=== PATIENT | male | born 1945 | race Caucasian/White ===

== ENCOUNTER 2018-03-14 14:51 | Inpatient (IN) | payer MEDICARE, OTHER ==
[2018-03-14] MEDS ORDERED: hydrALAZINE 20 MG/ML VIAL SLOW IVP PRN (17:24)
[2018-03-14 18:07] VITALS: BMI 24.5
--- NOTE | 2018-03-14 18:41 | CT ---
CT BRAIN WITHOUT CONTRAST: INDICATIONS: History of ischemic stroke, status post tPA. COMPARISON: None. FINDINGS: There is an area of acute stroke involving the anterior left insular cortex and the anterior aspect o f the lateral left frontal lobe, on image 15 of series 2. This is in an MCA distribution. No additi onal infarct is grossly evident. The septum pellucidum and third ventricle are midline. There is mu cosal thickening within the ethmoid air cells. The mastoid air cells are clear. The skull is intact . IMPRESSION: Findings of acute stroke involving the anterior left insular cortex, in a left middle cerebral artery distribution. No additional acute infarct is grossly evident. No intracranial hemorrhage is noted. POS: [facility]
[2018-03-14] MEDS: Sodium Chloride 0.9% 1,000 ML IV SCH (19:44)
[2018-03-15 05:02] LABS: Cardiac Risk 3.5 (Less than 4.5)
--- NOTE | 2018-03-15 06:34 | HP ---
CHIEF COMPLAINT: Stroke. HISTORY OF PRESENT ILLNESS: This patient is a 73-year-old male who initially presented to [facility] in [place]. The patient has a history of hypertension, but otherwise very active and healthy person. He presented after having abrupt neurologic symptoms. The patient's reported that he simply stepped out on the front porch and then she heard him fall and he apparently could not get up and called out for her and she went out to find him with some right-sided weakness and some slurred speech and facial droop. The patient was taken to the emergency department there where he was diagnosed with a stroke. Head CT was performed which revealed a left middle cerebral artery distribution cerebrovascular accident. A CT angiogram revealed abrupt cutoff of the anterior left M3, M4 branch within the left sylvian fissure representing a vessel occlusion. There was 40% stenosis of the origin of the left internal carotid with atheromatous plaque and some paranasal sinus disease. The patient met criteria and subsequently had t-PA administered. He has apparently had some improvement of symptoms since that time according to the family. The paramedics who delivered the patient to the hospital in [place] were also the ones to transport him to our facility and said he was dramatically improved. Currently, the patient denies any particular problems. The patient is not talking a great deal; however. PAST MEDICAL HISTORY: Notable for hypertension. PAST SURGICAL HISTORY: None. REVIEW OF SYSTEMS: Not obtainable presently. SOCIAL HISTORY: The patient is a nonsmoker. He uses a can of smokeless tobacco per day. No significant alcohol use. He is . CODE STATUS: He is FULL CODE. His and children are surrogate decision makers. ALLERGIES: None. MEDICATIONS: Lisinopril 20 mg p.o. b.i.d., carvedilol 12.5 mg p.o. b.i.d., and Norvasc 5 mg every day. PHYSICAL EXAMINATION: VITAL SIGNS: Afebrile, pulse 64, BP 118/68, O2 sat 99% on room air. GENERAL APPEARANCE: Age appropriate male. He is in no distress. He is awake. He does make eye contact. He speaks very little. He has some confusion regarding following the commands at times. He has right facial droop. HEENT: Pupils are equal, round, and reactive. He has no OP lesions. NECK: Supple and symmetric. CARDIOVASCULAR: Regular rate and rhythm without murmurs. LUNGS: Clear to auscultation bilaterally. Good chest wall expansion and air exchange. ABDOMEN: Soft, nontender, nondistended. Positive bowel sounds, no masses, no organomegaly. 14 cm umbilical hernia that is not reducible, but soft and non- tender with no inflammation. Right inguinal hernia with no evidence of incarceration. EXTREMITIES: Warm and dry. NEUROLOGIC: The patient has some right-sided weakness that is 4/5. He appears to have some confusion when following commands. When asked to stick out his tongue he puts his finger in his mouth. No significant evidence of neglect. Cerebellar exams are difficult as patient is not able to adequately follow commands. Speaks one word answers occasionally. LABORATORY DATA: Performed at outside facility, glucose 126, BUN 6, creatinine 0.85, sodium 140, potassium 3.9, chloride 107, CO2 19, bilirubin 0.6, alkaline phosphatase 64, AST 20, ALT 10, total protein 7.9, albumin 4.1. Troponins negative. INR is 1.1, PT 14.4, white count 10.2, hemoglobin 16.2, platelets 345. ASSESSMENT AND PLAN: 1. Left middle cerebral artery cerebrovascular accident status post t-PA. The patient will be admitted to the CCU with close observation with frequent neuro checks for 24 hours and avoid any other invasive procedures or needle sticks during that time. The patient will subsequently need an echocardiogram, fasting lipid panel and initiation of antiplatelet therapy. We will allow for some hypertension, give p.r.n. for systolics greater than 185. We will repeat head CT following the t-PA infusion. The patient may need MRI at some point. We will consult the stroke team including speech therapy and keep the patient n.p.o. until he has an evaluation as he appears to have failed the bedside swallowing study. 2. Hypertension. We will resume his usual medications once he is able to tolerate p.o. and will also avoiding any medicines until that time. 3. Umbilical hernia. Stable 4. Right inquinal hernia. Stable 3. Disposition. I had a long discussion with the patient's family and explained the prognosis. We will do a little in the first 24 hours and monitor closely and then we will initiate significant therapy interventions. TANIA
--- NOTE | 2018-03-15 08:59 | CT ---
PRELIMINARY REPORT/[facility]/EMERGENTY AFTER-HOURS PROCEDURE CT Head Without Intravenous Contrast EXAM DATE/TIME: 03/15/2018 4:03 AM CLINICAL HISTORY: 73 years old, male; Screening exam; Patient HX: CVA; S/P tpa TECHNIQUE: Axial computed tomography images of the head/brain without intravenous contrast. COMPARISON: CT Brain W Con 03/14/2018 6:22 PM FINDINGS: Brain: Patient is post TPA administration. No acute intracranial hemorrhage. Redemonstrated is hypoat tenuation in a LEFT MCA distribution with involvement of the LEFT frontal lobe, anterior subinsular c ortex and small region of hypoattenuation within the LEFT posterior parietal lobe better defined from prior. Ventricles: Normal. No ventriculomegaly. Bones/joints: Normal. No acute fracture. Sinuses: Normal as visualized. No acute sinusitis. Mastoid air cells: Normal as visualized. No mastoid effusion. Soft tissues: Normal. IMPRESSION: 1. Patient is post TPA administration. No acute intracranial hemorrhage. 2. LEFT MCA territory infarcts more pronounced from prior as above. (Now Aspect 6- previous score pro bably 8) Thank you for allowing us to participate in the care of your patient. Dictated and Authenticated by: Jamarcus Velázquez MD 03/15/2018 4:23 AM Central Time ([place] & [place]) CT BRAIN WITHOUT CONTRAST: History: Status post TPA. Comparison: Prior day. FINDINGS: These findings and impression are concordant with the preliminary report. Code QA POS: [facility]
[2018-03-15] MEDS ORDERED: Prevnar 13-Val Conj/PF 0.5 ML SYRINGE IM ONE (09:00)
[2018-03-15] MEDS ORDERED: Aspirin 300 MG Suppository PR SCH (15:15)
[2018-03-15] MEDS: Sodium Chloride 0.9% 1,000 ML IV SCH (15:42)
--- NOTE | 2018-03-15 16:51 | PDOC.PN ---
- Subjective Encounter Start Date: 03/15/18 Encounter Start Time: 10:30 No complaints, but not really verbal. Nursing and therapy indicate that the does seem to understand some communication at times and follow commands, but other times does not. Seems to respond to visual cues when he does not respond to verbal cues. - Objective Resuscitation Status: Resuscitation Status FULL:Full Resuscitation Vital Signs & Weight: Vital Signs (12 hours) Temp Pulse Pulse BP BP Pulse Ox Pulse Ox 03/15/18 12:00 98.5 F 03/15/18 10:24 64 61 142/79 H 148/61 H 97 03/15/18 08:00 98 03/15/18 07:00 98.9 F Pulse Ox 03/15/18 12:00 03/15/18 10:24 97 03/15/18 08:00 03/15/18 07:00 Weight Admit Weight 161 lb 2.526 oz Weight 161 lb 2.526 oz Most Recent Monitor Data Heart Rate from ECG 61 NIBP 139/76 NIBP BP-Mean 97 Respiration from ECG 18 SpO2 97 I&O: 03/14/18 03/15/18 03/16/18 06:59 06:59 06:59 Intake Total 507 Output Total 3 2 Balance 504 -2 Phys Exam - Physical Examination Constitutional: NAD Respiratory: no wheezing, no rales, no rhonchi, clear to auscultation bilateral Cardiovascular: RRR, no significant murmur Gastrointestinal: soft, non-tender, no distention, positive bowel sounds Musculoskeletal: no edema Right facial droop. RUE weakness increased from last night. 4/5 RLE str. Non-verbal. Some receptive aphasia. Dx/Plan (1) CVA (cerebral vascular accident) Code(s): I63.9 - CEREBRAL INFARCTION, UNSPECIFIED Status: Acute Comment: Status post tPA. Now past 24 hours. Start ASA. Will start statin if he can get to the poing of swallowing pills. (2) Hypertension Code(s): I10 - ESSENTIAL (PRIMARY) HYPERTENSION Status: Acute Comment: Stable without meds. (3) Aphasia Code(s): R47.01 - APHASIA Status: Acute (4) Dysphagia Code(s): R13.10 - DYSPHAGIA, UNSPECIFIED Status: Acute Comment: Still NPO. Continue to assess. - Plan * Transfer to stroke floor. Continue therapy.
--- NOTE | 2018-03-15 21:22 | CON ---
DATE OF CONSULTATION: 03/15/2018 HISTORY: Mr. Morrow is a 73-year-old male who presented with symptoms of a stroke. He has undergone TPA administration. He is moving his right lower extremity more than his right upper extremity and h e is aphasic. He is in the ICU was consulted because of presence in the ICU. PAST MEDICAL HISTORY: Remarkable for hypertension. SOCIAL HISTORY: Non-smoker. He dips and nondrinker. FAMILY HISTORY: Negative for lung disease in early age. ALLERGIES: He reports no drug allergies. MEDICATIONS: Prior to admission, he was on lisinopril, Coreg, Norvasc. REVIEW OF SYSTEMS: Not obtainable. PHYSICAL EXAMINATION: GENERAL: He is in no distress. VITAL SIGNS: He is afebrile, heart rate in the 60s, blood pressure 106/80, respiratory rate is 20, o ximetry is 97%. HEENT: Pupils reactive. Facial droop. NECK: Supple. LUNGS: Clear. HEART: Regular rhythm. S1 and S2 are normal. No murmur or gallop. ABDOMEN: Soft and nontender. EXTREMITIES: Without clubbing, cyanosis or edema. LABORATORY DATA: White count 8.7, hemoglobin 15.1, platelets 328. Sodium 140, potassium 3.7, chlori de 107, bicarbonate 29, BUN 9, creatinine 0.8. IMPRESSION AND PLAN: Cerebrovascular status post TPA, clinically stable. He will stay in the Critic al Care Unit per TPA protocol. Once he completed the protocol, he can move to stroke unit. This is a 70-minute consult, 50% time spent in coordinating care. We will sign off once he transfers out of the Critical Care Unit.
--- NOTE | 2018-03-16 03:52 | CON ---
DATE OF CONSULTATION: 03/15/2018 CHIEF COMPLAINT: Acute stroke. HISTORY OF PRESENT ILLNESS: History was given by family plus medical chart. The patient is a 73-yea r-old man who was taken to [facility] in [place], [place]. The patient has a history of hypertens ion. He is quite active otherwise. He woke up and ate breakfast on 03/14/2018. 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 He was somewhat fidgety when he came back. At last time, he was fidgety, had the same symptoms 1-1/2 years ago. He hollered and his found him lying down on the deck out side. He could not get himself up. This incident occurred at 11:00 a.m. They got to [facility] between 12 to 12:30 p.m. and he received IV tPA. Daughter said he also was given a bolus of IV tPA. Prior to tPA, there were some improvement, but subsequent to tPA, they did not notice any change, b ut overnight he seems to have worsened according to his [id number]. The patient had a CT head w [facility] showed a left MCA territory infarct. CT angiogram showed cut off the anterior left M3, M4 branc h within the left sylvian fissure, representing a vessel occlusion and 40% stenosis of left ICA. Acc ording to his chart, this CT angio report was not available to me for review. The patient met the cr iteria for tPA and patient has been brought to our hospital and since then he has not been talking mu and he continues to have right upper extremity weakness. PAST MEDICAL HISTORY: The patient has history of hypertension. PAST SURGICAL HISTORY: He had appendectomy in the past. SOCIAL HISTORY: The patient is a nonsmoker. He does use snuff once daily and he is , lives a t home. 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 He drinks 2 drinks of al cohol per day. ALLERGIES: No known drug allergies. CURRENT MEDICATIONS: At home, he takes lisinopril 20 mg twice daily, carvedilol 12.5 mg twice a day, Norvasc 5 mg daily. FAMILY HISTORY: His brother was killed in his early 50s in a motor vehicle accident. His sister d in her 60s from an early stroke and his father and he does not know the cause of and mot her in her 70s and review of systems unobtainable. LABORATORY DATA AND X-RAY FINDINGS: Triglycerides 62, cholesterol 142, LDL 89, HDL 41 and his lab re ports that were done at [facility] were not available to me and CT scan of the head was p erformed on arrival here and that showed findings of acute stroke in the anterior left insular cortex and in the left middle cerebral artery distribution and repeat CT scan of the head performed today s howed no acute hemorrhage and the same findings were redemonstrated, but the small region of hypoatte nuation within the left posterior parietal lobe was better defined from prior CT and his echo is pend ing, MRI is pending. PHYSICAL EXAMINATION: VITAL SIGNS: Blood pressure 139/76, heart rate is 61, temperature 97.4. GENERAL APPEARANCE: Well-built, well-nourished gentleman who is comfortable in the bed and he is charlie rounded by his family members. CHEST: Clear vesicular breathing. CARDIOVASCULAR: S1, S2 heard, no murmurs. ABDOMEN: Soft, nontender and he does have an umbilical hernia. NEUROLOGIC: Higher intellectual functions difficult to assess his mental status due to severe expres sive aphasia. Cranial nerves: Normal extraocular movements. Pupils are equal and reactive to light and normal hearing because he is able to comprehend verbal speech. Tongue midline and he has right facial droop. Speech abnormal with expressive aphasia. MOTOR EXAMINATION: Bulk normal, tone normal, strength is 0/5 in the right upper extremity throughout and 3/5 in the right lower extremity, left side was normal 5/5. Muscle groups tested are iliopsoas, hamstrings, quadriceps, ankle dorsiflexion, plantar flexion, deltoid, biceps, triceps, wrist extensi on/flexion, finger extension and flexion bilaterally. CEREBELLAR: Difficult to perform due to his aphasia and sensory difficult to assess. Gait not tayla ble. IMPRESSION: The patient is a 73-year-old man with known history of hypertension. He had an acute st roke in the left middle cerebral artery distribution and has developed right face, arm, and leg weakn ess with expressive aphasia and his stroke is further established since the onset. This event could have been devastating if he did not receive IV tPA and he has 40% stenosis of the origin of left inte rnal carotid artery as well. Based on his chart, clinical diagnosis is most consistent with acute ce rebrovascular accident in the left middle cerebral artery distribution and he had tPA administered wi thin the timeframe. At this time, he is stable, but continues to have significant aphasia and severe right arm weakness and some improvement of the right leg weakness and does not exhibit any gaze alina ation. I do think tPA has helped him to prevent significant ischemic penumbra. RECOMMENDATIONS: 1. I discussed the diagnosis with the patient and his family members answered all their questions. 2. We will request an MRI scan of the brain to evaluate the extent of his CVA and whether if any oth er additional areas. 3. We obtained all the CT angiogram reports as well for our records, so subsequent evaluations and p lans can be made for better management of stroke risk in the future. Please complete stroke workup i ncluding echocardiogram. I will request his Neurology team, inpatient team will continue to follow.
[2018-03-16 04:45] LABS: #Eosinphils 0.2 thou/uL (0.0-0.7); #Lymphocytes 1.8 thou/uL (1.20-3.40); #Monocytes 0.6 thou/uL (0.11-0.59); #Neutrophils 6.4 thou/uL (1.40-6.50); %Basophils 0.5 % (0.0-1.0); %Eosinophils 2.7 % (0.0-10.0); %Lymphocytes 20.1 % (21.0-51.0); %Monocytes 6.8 % (0.0-10.0); Mean Corpuscular HGB CONC 31.8 g/dL (32.0-36.0); Mean Corpuscular Hemoglobin 29.4 pg (27.0-31.0); Mean Corpuscular Volume 92.4 fL (78.0-98.0); Mean Platelet Volume 7.8 fL (7.4-10.4); Platelet Count 299 thou/uL (130-400); RBC Distribution Width 12.4 % (11.5-14.5); Red Blood Cell (RBC) Count 5.09 mill/uL (4.70-6.10); White Blood Cell (WBC) Count 9.1 thou/uL (4.8-10.8)
[2018-03-16 05:10] LABS: Anion Gap 11 mmol/L (10-20); BUN (Urea Nitrogen) 10 mg/dL (8.4-25.7); Calc. Creatinine Clearance 95 mL/min (70-130); Calcium 8.9 mg/dL (7.8-10.44); Carbon Dioxide 24 mmol/L (23-31); Chloride 107 mmol/L (98-107); Estimated GFR-MDRD Greater than 90; Glucose 83 mg/dL (83-110); Potassium 3.5 mmol/L (3.5-5.1); Sodium 138 mmol/L (136-145)
[2018-03-16] MEDS: Aspirin 300 MG Suppository PR SCH (08:24)
[2018-03-16] MEDS: Sodium Chloride 0.9% 1,000 ML IV SCH (12:14)
--- NOTE | 2018-03-16 16:55 | PDOC.PN ---
- Subjective Encounter Start Date: 03/16/18 Encounter Start Time: 15:30 -: non-verbal - Objective Resuscitation Status: Resuscitation Status FULL:Full Resuscitation Vital Signs & Weight: Vital Signs (12 hours) Temp Pulse Pulse Pulse Resp BP BP 03/16/18 15:32 97.3 F L 64 16 03/16/18 11:50 97.9 F 62 16 03/16/18 10:10 72 59 L 147/82 H 157/91 H 03/16/18 09:30 64 161/89 H 03/16/18 08:19 03/16/18 07:52 97.5 F L 69 16 BP Pulse Ox 03/16/18 15:32 154/88 H 96 03/16/18 11:50 143/82 H 96 03/16/18 10:10 03/16/18 09:30 03/16/18 08:19 95 03/16/18 07:52 154/80 H 95 Weight Admit Weight 161 lb 2.526 oz Weight 161 lb 2.526 oz Most Recent Monitor Data Heart Rate from ECG 61 NIBP 139/76 NIBP BP-Mean 97 Respiration from ECG 18 SpO2 97 I&O: 03/15/18 03/16/18 03/17/18 06:59 06:59 06:59 Intake Total 507 174 Output Total 3 2 Balance 504 172 Result Diagrams: 03/16/18 04:19 03/16/18 04:19 Phys Exam - Physical Examination Constitutional: NAD Expressive aphasia Respiratory: no wheezing, no rales, no rhonchi, clear to auscultation bilateral Cardiovascular: RRR, no significant murmur, no rub Gastrointestinal: soft, non-tender, no distention, positive bowel sounds Musculoskeletal: no edema Persistent paralysis of RUE, right facial droop, modest RLE Weakness. Expressive aphasia, some degree of receptive aphasia Psychiatric: normal affect Dx/Plan (1) CVA (cerebral vascular accident) Code(s): I63.9 - CEREBRAL INFARCTION, UNSPECIFIED Status: Acute Comment: Status post tPA. Now past 24 hours. Start ASA. Will start statin if he can get to the poing of swallowing pills. (2) Hypertension Code(s): I10 - ESSENTIAL (PRIMARY) HYPERTENSION Status: Acute Comment: Stable without meds. (3) Aphasia Code(s): R47.01 - APHASIA Status: Acute (4) Dysphagia Code(s): R13.10 - DYSPHAGIA, UNSPECIFIED Status: Acute Comment: Still NPO. Failing swallowing evals. Talked with MORTUARY TECHNICIAN. I don't think MBS is going to change the need for PEG. Discussed with patient and family. They are agreeable to the PEG. Discussed with Dr. Rizo. - Plan * PEG. * IP Rehab consult pending.
--- NOTE | 2018-03-16 23:20 | CON ---
DATE OF CONSULTATION: 03/16/2018 REASON FOR CONSULTATION: In need of a gastrostomy feeding tube. HISTORY: Mr. Morrow is a 73-year-old male who sustained an acute cerebrovascular event involving the left-side MCA distribution resulting in severe right-sided weakness, aphasia and dysphagia. He did receive PPA in [place] prior to transfer. The patient has failed a bedside swallowing evaluation with clear evidence of aspiration. History is obtained from multiple family members. Leading up prior to the CVA, he did not have any significant gastrointestinal history. He had a normal appetite with no nausea, vomiting, or trouble swallowing. He did not have any abdominal pain. Bowel function has been regular without any evidence of bleeding. PAST MEDICAL AND SURGICAL HISTORY: 1. Appendectomy. 2. Hypertension. ALLERGIES: None. HOME MEDICATIONS: Include Coreg, Norvasc, lisinopril. SOCIAL HISTORY: Patient lives with his , has no tobacco usage. Consumes 1- 2 alcoholic beverages daily. FAMILY HISTORY: Negative for any known GI problem, liver disease, GI malignancy. REVIEW OF SYSTEMS: Not obtainable. PHYSICAL EXAMINATION: VITAL SIGNS: Temperature is 97.3, blood pressure 154/88, pulse of 64. GENERAL: He is alert, but not conversant. HEENT: Shows anicteric sclerae. Oropharynx clear. NECK: Supple. CARDIOVASCULAR: Shows normal S1, S2, regular rate and rhythm. CHEST: Shows normal breath sounds. ABDOMEN: Showed a protruding 2-cm umbilical hernia, but very reducible. He also has a right inguinal hernia. His abdomen is without any scar. There is no tenderness. There is no distention. He has active bowel sounds. EXTREMITIES: Shows no edema. LABORATORY DATA: WBC is 9.1, hemoglobin 15.0, platelet count of 299,000. Electrolytes within normal range, creatinine 0.73. ASSESSMENT: Acute cerebrovascular accident, involving left middle cerebral artery distribution with right-sided weakness, aphasia, and dysphagia. He failed a bedside swallowing evaluation with high risk for aspiration. The patient is a good candidate for alternative methods of feeding. There is no contraindication to proceed with gastrostomy tube placement. RECOMMENDATIONS: Esophagogastroduodenoscopy with gastrostomy tube placement in a.m. Indication including risks of the procedure not limited to bleeding, infection, trauma to surrounding organs, perforation were discussed with family. All questions were answered. We will proceed in a.m. [facility]
[2018-03-17] MEDS: Sodium Chloride 0.9% 1,000 ML IV SCH (08:29)
[2018-03-17] MEDS: Aspirin 300 MG Suppository PR SCH (08:32)
[2018-03-17] MEDS ORDERED: Lidocaine 1% PF 5 ML VIAL ONE (10:37)
[2018-03-17] MEDS ORDERED: PROPOFOL 200 MG/20 ML VIAL ONE (10:37)
[2018-03-17] MEDS ORDERED: CEFAZOLIN 2 GM/50 ML BAG ONE (16:30)
[2018-03-17] MEDS ORDERED: Ondansetron HCl/PF 4 MG/2 ML Vial IVP PRN (17:23)
--- NOTE | 2018-03-17 19:10 | PDOC.PN ---
- Subjective Encounter Start Date: 03/17/18 Encounter Start Time: 13:00 Subjective: nsg notes rev, marlyn ovn, multiple family members at bedside, pt is -: interactive and can answer yes/ no w/o verbalizing. no new c/o. waiting for -: PEG - Objective Resuscitation Status: Resuscitation Status FULL:Full Resuscitation Vital Signs & Weight: Vital Signs (12 hours) Temp Pulse Pulse Resp BP BP Pulse Ox 03/17/18 18:33 97.8 F 69 14 184/92 H 98 03/17/18 16:00 99.1 F 75 16 158/90 H 97 03/17/18 12:00 97.8 F 69 20 133/75 98 03/17/18 10:00 60 144/72 H 03/17/18 08:00 97.6 F 73 16 157/93 H 96 Weight Admit Weight 161 lb 2.526 oz Weight 161 lb 2.526 oz Most Recent Monitor Data Heart Rate from ECG 61 NIBP 139/76 NIBP BP-Mean 97 Respiration from ECG 18 SpO2 97 I&O: 03/16/18 03/17/18 03/18/18 06:59 06:59 06:59 Intake Total 174 Output Total 2 Balance 172 Result Diagrams: 03/16/18 04:19 03/16/18 04:19 Dx/Plan - Plan - Physical Examination Constitutional: NAD Expressive aphasia, seated in hospital bed Respiratory: no wheezing, no rales, no rhonchi, clear to auscultation bilateral Cardiovascular: RRR, no significant murmur, no rub Gastrointestinal: soft, non-tender, no distention, positive bowel sounds Musculoskeletal: no edema Persistent paralysis of RUE, right facial droop, modest RLE Weakness. Expressive aphasia, some degree of receptive aphasia Psychiatric: normal affect Dx/Plan (1) CVA (cerebral vascular accident) Code(s): I63.9 - CEREBRAL INFARCTION, UNSPECIFIED Status: Acute Comment: Status post tPA. Now past 24 hours. Start ASA. Will start statin if he can get to the poing of swallowing pills. plan for PEG later today - will start TF as per recs when cleared to do so (2) Hypertension Code(s): I10 - ESSENTIAL (PRIMARY) HYPERTENSION Status: Acute Comment: Stable without meds. (3) Aphasia Code(s): R47.01 - APHASIA Status: Acute (4) Dysphagia Code(s): R13.10 - DYSPHAGIA, UNSPECIFIED Status: Acute Comment: Still NPO. Failing swallowing evals. Talked with COLOR STRAINER. I don't think MBS is going to change the need for PEG. Discussed with patient and family. They are agreeable to the PEG. Discussed with Dr. Rizo. - Plan Will need IP rehab. Very participatory in therapy. D/W pt, pts family at bedside >30 min spent at bedside Review of Systems - Medications/Allergies Allergies/Adverse Reactions: Allergies Allergy/AdvReac Type Severity Reaction Status Date / Time No Known Allergies Allergy Unverified 03/14/18 19:34 Medications: Current Medications Aspirin (Aspirin) 300 mg NE DAILY [facility] Last Admin: 03/17/18 08:32 Dose: Not Given Fentanyl (Pacu-Sublimaze) 25 mcg SLOW IVP Q10MIN PRN PRN Reason: Moderate to Severe Pain (6-10) Stop: 03/17/18 20:23 Hydralazine HCl (Apresoline) 10 mg SLOW IVP Q4H PRN PRN Reason: Hypertension Sodium Chloride (Normal Saline 0.9%) 1,000 mls @ 50 mls/hr IV .Q20H [facility] Last Admin: 03/17/18 08:29 Dose: 1,000 mls Ondansetron HCl (Pacu-Zofran) 4 mg IVP ONE PRN PRN Reason: Nausea/Vomiting Stop: 03/17/18 20:23 Sodium Chloride (Flush - Normal Saline) 10 ml IVF PRN PRN PRN Reason: Saline Flush
--- NOTE | 2018-03-17 23:14 | OP ---
DATE OF PROCEDURE: 03/17/2018 PROCEDURE: Esophagogastroduodenoscopy with percutaneous endoscopic gastrostomy tube placement. PREOPERATIVE DIAGNOSIS: Oropharyngeal dysphagia secondary to stroke. OPERATIVE NOTE: Informed consent was obtained from the patient's family. He was sedated with total intravenous anesthesia. The bite block was placed and the endoscope was advanced easily to the secon d portion of the duodenum and retroflexion was performed in the stomach. The esophagus was normal. The GE junction was normal. The stomach was normal including retroflexed views. The pylorus and fir st and second portions of the duodenum were normal. The stomach was fully insufflated and the approp riate site was transilluminated in the left upper quadrant. The site was palpated and sterilized wit h chlorhexidine. The patient received 2 grams of Ancef immediately prior to the procedure. The skin was anesthetized with 5 mL of 1% lidocaine. A small skin incision was performed and the catheter wa s placed through the incision into the stomach in one attempt under direct visualization. The wire w as placed through the catheter and grasped with a snare and pulled out through the patient's mouth. The 20-Maori gastrostomy tube was then placed by the pull-through technique. The external bumper wa s placed at 3.5 cm. Triple antibiotic ointment was applied to the incision site. Second look endosc opy showed the bumper to be in good position internally. IMPRESSION: 1. Normal esophagogastroduodenoscopy. 2. Successful placement of 20-Maori percutaneous endoscopic gastrostomy tube with the external bump er at 3.5 cm. RECOMMENDATION: Start feeds in 12 hours.
[2018-03-18] MEDS ORDERED: Haloperidol Lactate 5 MG/ML VIAL IM SCH (00:15)
[2018-03-18] MEDS: Sodium Chloride 0.9% 1,000 ML IV SCH ×2 (06:23→17:42)
[2018-03-18] MEDS: Aspirin 300 MG Suppository PR SCH (08:38)
--- NOTE | 2018-03-18 13:33 | PRG ---
DATE OF SERVICE: 03/18/2018 SUBJECTIVE: Mr. Morrow is tolerating his tube feeds well. He denies any significant abdominal pain. OBJECTIVE: VITAL SIGNS: He is afebrile, temperature 98.8, pulse 88, blood pressure 155/58. ABDOMEN: PEG site has healthy appearing skin around it. The external bumper was loosened to 5 cm. These have no tenderness around the site. He has good bowel sounds. IMPRESSION: Dysphagia secondary to stroke, status post percutaneous endoscopic gastrostomy tube plac ement yesterday. RECOMMENDATIONS: 1. Continue feeds as he is tolerating them well. 2. I will sign off. Please call if GI can be of assistance.
--- NOTE | 2018-03-18 16:56 | PDOC.PN ---
- Subjective Encounter Start Date: 03/18/18 Encounter Start Time: 11:00 -: non-verbal Subjective: nsg notes rev, marlyn ovn, no new c/o, s/p PEG placement had some -: oozing around surg site which has resolved, VSS, no c/o pain. has been gerson -: TF and advancement since then. Also had some delirium ovn - Objective Resuscitation Status: Resuscitation Status FULL:Full Resuscitation Vital Signs & Weight: Vital Signs (12 hours) Temp Pulse Pulse Pulse Resp BP BP 03/18/18 16:00 97.9 F 94 16 03/18/18 14:00 84 87 148/84 H 138/76 03/18/18 13:25 86 117/66 03/18/18 11:39 98.8 F 88 16 03/18/18 07:38 98.1 F 86 14 BP BP Pulse Ox 03/18/18 16:00 140/89 97 03/18/18 14:00 03/18/18 13:25 03/18/18 11:39 155/58 H 88 L 03/18/18 07:38 156/70 H 97 Weight Admit Weight 161 lb 2.526 oz Weight 161 lb 2.526 oz Most Recent Monitor Data Heart Rate from ECG 61 NIBP 139/76 NIBP BP-Mean 97 Respiration from ECG 18 SpO2 97 I&O: 03/17/18 03/18/18 03/19/18 06:59 06:59 06:59 Intake Total 500 90 Balance 500 90 Result Diagrams: 03/18/18 00:24 03/16/18 04:19 Dx/Plan - Plan - Physical Examination Constitutional: NAD Expressive aphasia, seated in hospital bed Respiratory: no wheezing, no rales, no rhonchi, clear to auscultation bilateral Cardiovascular: RRR, no significant murmur, no rub Gastrointestinal: soft, non-tender, no distention, positive bowel sounds Musculoskeletal: no edema Persistent paralysis of RUE, right facial droop, modest RLE Weakness. Expressive aphasia, some degree of receptive aphasia Psychiatric: normal affect Dx/Plan (1) CVA (cerebral vascular accident) Code(s): I63.9 - CEREBRAL INFARCTION, UNSPECIFIED Status: Acute Comment: Status post tPA. Now past 24 hours. Start ASA. Once TF at goal, may resume oral medications via PEG will need extensive ST, OT, PT Also had episode of delirium ovn req Haldol, suspect may be related to recent procedure. Continue to monitor. (2) Hypertension Code(s): I10 - ESSENTIAL (PRIMARY) HYPERTENSION Status: Acute Comment: Stable without meds. (3) Aphasia Code(s): R47.01 - APHASIA Status: Acute (4) Dysphagia Code(s): R13.10 - DYSPHAGIA, UNSPECIFIED Status: Acute Comment: s/p PEG placement with some yelena-operative oozing which has since resolved. Currently advancing TF as tolerated. - Plan d/C if stable in AM D/W pts bedside nsg Review of Systems - Medications/Allergies Allergies/Adverse Reactions: Allergies Allergy/AdvReac Type Severity Reaction Status Date / Time No Known Allergies Allergy Unverified 03/14/18 19:34 Medications: Current Medications Aspirin (Aspirin) 300 mg ID DAILY [facility] Last Admin: 03/18/18 08:38 Dose: 300 mg Hydralazine HCl (Apresoline) 10 mg SLOW IVP Q4H PRN PRN Reason: Hypertension Sodium Chloride (Normal Saline 0.9%) 1,000 mls @ 50 mls/hr IV .Q20H [facility] Last Admin: 03/18/18 06:23 Dose: Not Given Sodium Chloride (Flush - Normal Saline) 10 ml IVF PRN PRN PRN Reason: Saline Flush
[2018-03-19] MEDS: Aspirin 300 MG Suppository PR SCH (10:42)
[2018-03-19] MEDS: Sodium Chloride 0.9% 1,000 ML IV SCH (13:24)
--- NOTE | 2018-03-19 14:28 | PDOC.PN ---
- Subjective Encounter Start Date: 03/19/18 Encounter Start Time: 14:27 Mr. Morrow was seen today in follow-up of acute CVA. He is non-verbal. He appears comfortable. There have been no complaints voiced by staff. - Objective Resuscitation Status: Resuscitation Status FULL:Full Resuscitation MAR Reviewed: Yes Vital Signs & Weight: Vital Signs (12 hours) Temp Pulse Pulse Pulse Resp BP BP 03/19/18 12:00 98.2 F 87 19 03/19/18 08:35 83 82 153/84 H 133/76 03/19/18 07:50 03/19/18 07:43 98 F 89 18 03/19/18 03:59 97.5 F L 87 16 BP BP Pulse Ox 03/19/18 12:00 139/83 97 03/19/18 08:35 03/19/18 07:50 95 03/19/18 07:43 134/79 95 03/19/18 03:59 137/71 94 L Weight Admit Weight 161 lb 2.526 oz Weight 161 lb 2.526 oz Most Recent Monitor Data Heart Rate from ECG 61 NIBP 139/76 NIBP BP-Mean 97 Respiration from ECG 18 SpO2 97 I&O: 03/18/18 03/19/18 03/20/18 06:59 06:59 06:59 Intake Total 500 2697 1046 Balance 500 2697 1046 Result Diagrams: 03/18/18 00:24 03/16/18 04:19 Phys Exam - Physical Examination HEENT: PERRLA Respiratory: no wheezing, no rales, no rhonchi, clear to auscultation bilateral Cardiovascular: RRR, no significant murmur, no rub Gastrointestinal: soft, positive bowel sounds PEG site ok, no drainage or erythema Musculoskeletal: no edema Dx/Plan (1) CVA (cerebral vascular accident) Code(s): I63.9 - CEREBRAL INFARCTION, UNSPECIFIED Status: Acute Comment: Status post tPA. Now past 24 hours. Start ASA. Will start statin if he can get to the poing of swallowing pills. (2) Dysphagia Code(s): R13.10 - DYSPHAGIA, UNSPECIFIED Status: Acute Comment: Still NPO. Failing swallowing evals. Talked with CREDIT VERIFIER. I don't think MBS is going to change the need for PEG. Discussed with patient and family. They are agreeable to the PEG. Discussed with Dr. Rizo. (3) Hypertension Code(s): I10 - ESSENTIAL (PRIMARY) HYPERTENSION Status: Chronic Comment: Stable without meds. - Plan * Acute CVA with Dysphagia ,and Right hemiparesis. He is s/p PEG placement, and tolerating tube feeds * Stable for transition to Rehab
[2018-03-19 15:48] VITALS: TEMP 98
[2018-03-19 15:49] VITALS: BP 146/69
--- NOTE | 2018-03-19 22:13 | DIS ---
DATE OF ADMISSION: 03/14/2018 DATE OF DISCHARGE: 03/19/2018 PRIMARY CARE PHYSICIAN: Yamila Sandoval M.D. DISCHARGE DISPOSITION: To inpatient rehabilitation. DISCHARGE DIAGNOSES: 1. 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 2. Status post TPA. 3. Hypertension. 4. Dysphagia secondary to the stroke. 5. Expressive aphasia. DISCHARGE MEDICATIONS: Include aspirin 325 mg per PEG tube daily, Lipitor 10 mg per tube daily and c arvedilol 12.5 mg per tube twice a day. PROCEDURES DONE DURING ADMISSION: The patient had a CT scan of the brain on 02/11/2018 showing findi ngs of an acute stroke in the anterior left insular cortex in the left middle cerebral artery distrib ution. He had a repeat CT this following day. Post-TPA no evidence of any acute bleed and the left MCA territory infarcts were more pronounced. The patient had an echocardiogram in which the ejection fraction was estimated at 55%-60% with grade I/III diastolic dysfunction. The left atrium was moder ately dilated. CODE STATUS: FULL CODE. ALLERGIES: No known drug allergies. HOSPITAL COURSE: Mr. Morrow is a pleasant 73-year-old gentleman who presented to the emergency room a fter his noted that after he had stepped out on the porch he collapsed and could not get up. He was brought originally to the emergency room at [facility] in [place] and then transported to [facility] [place]. He received TPA in [place] and then was transported to our facility for care. He was i nitially monitored in the ICU in the post-TPA protocol. The patient unfortunately had some residual expressive aphasia and dysphagia in addition to some weakness on the right side. The decision was cindy lockett for him to undergo PEG tube placement by family. He tolerated the procedure well and was subseque ntly discharged to the inpatient rehabilitation facility for further physical therapy as well [facility].
== END 2018-03-19 19:54 | DRG 65 ==
LOC: ERS 14:51 → CCU 16:18 → 2SE 03-15 14:11
PROVIDERS: ADMIT Internal Medicine; ATTEND Internal Medicine
PROC: 0DJ08ZZ Inspection of Upper Intestinal Tract, Via Natural or Artificial Opening Endoscopic (ICD-10-PCS; principal; 2018-03-17)
PROC: 0DH63UZ Insertion of Feeding Device into Stomach, Percutaneous Approach (ICD-10-PCS; 2018-03-17)
DX: I63.9 Cerebral infarction, unspecified (principal); G81.91 Hemiplegia, unspecified affecting right dominant side; R29.810 Facial weakness; I10 Essential (primary) hypertension; R47.01 Aphasia; R47.81 Slurred speech; Z79.899 Other long term (current) drug therapy; K42.9 Umbilical hernia without obstruction or gangrene; K40.90 Unilateral inguinal hernia, without obstruction or gangrene, not specified as recurrent; R13.10 Dysphagia, unspecified; Z92.82 Status post administration of tPA (rtPA) in a different facility within the last 24 hours prior to admission to current facility
CPT/HCPCS: 36415; 70450; 80048; 80061; 85014; 85018; 85025; 90471; 90662; 93005; 93306; G0008; G8978-GP-CM; G8979-GP-CK; G8987-GO-CM; G8988-GO-CJ; G8996-GN-CM; G8996-GN-CN; G8997-GN-CJ; G8997-GN-CL; J1630

== ENCOUNTER 2018-03-21 19:29 | Observation (INO) | payer MEDICARE, OTHER ==
[2018-03-21] MEDS ORDERED: Piperacillin/Tazobactam 4.5 GM VIAL ONE (20:38)
[2018-03-21 20:56] LABS: #Basophils 0.1 thou/uL (0.0-0.2); #Eosinphils 0.4 thou/uL (0.0-0.7); #Lymphocytes 1.9 thou/uL (1.20-3.40); #Monocytes 0.9 thou/uL (0.11-0.59); #Neutrophils 6.9 thou/uL (1.40-6.50); %Basophils 0.5 % (0.0-1.0); %Eosinophils 4.2 % (0.0-10.0); %Lymphocytes 18.3 % (21.0-51.0); %Monocytes 9.2 % (0.0-10.0); %Neutrophils 67.7 % (42.0-75.0); Hemoglobin 12.6 g/dL (14.0-18.0); Mean Corpuscular Hemoglobin 28.6 pg (27.0-31.0); Mean Corpuscular Volume 92.3 fL (78.0-98.0); Mean Platelet Volume 8.3 fL (7.4-10.4); Platelet Count 382 thou/uL (130-400); RBC Distribution Width 12.2 % (11.5-14.5); Red Blood Cell (RBC) Count 4.42 mill/uL (4.70-6.10); White Blood Cell (WBC) Count 10.2 thou/uL (4.8-10.8)
--- NOTE | 2018-03-21 21:14 | CT ---
CT BRAIN: HISTORY: Fell out of bed. COMPARISON: 03/15/2018 TECHNIQUE: Noncontrast enhanced CT images of the brain are obtained. FINDINGS: CT images demonstrate areas of subacute stroke in the left posterolateral frontal lobe, as well as th e left parietal regions. These were seen on the patient's previous comparison CT from approximately six days earlier. No acute intracranial masses or hemorrhages are seen. No evidence of subdural or epidural hematoma is seen. IMPRESSION: Left hemispheric areas of sub-acute stroke in the posterior frontal and left parietal regions. No ac lower [place] intracranial pathology is seen. POS: LALITHA
[2018-03-21 21:18] LABS: ALT (SGPT) 23 U/L (8-55); AST (SGOT) 28 U/L (5-34); Albumin 3.8 g/dL (3.4-4.8); Alkaline Phosphatase 47 U/L (40-150); Anion Gap 12 mmol/L (10-20); BUN (Urea Nitrogen) 14 mg/dL (8.4-25.7); Calc. Creatinine Clearance 0 mL/min (70-130); Calcium 9.5 mg/dL (7.8-10.44); Carbon Dioxide 29 mmol/L (23-31); Chloride 101 mmol/L (98-107); Estimated GFR-MDRD Greater than 90; Globulin 3.5 g/dL (2.4-3.5); Glucose 91 mg/dL (83-110); Potassium 3.8 mmol/L (3.5-5.1); Protein, Total 7.3 g/dL (5.8-8.1); Sodium 138 mmol/L (136-145)
--- NOTE | 2018-03-21 21:52 | PDOC.FPRHP ---
- History of Present Illness Chief Complaint: PEG out History of Present Illness: Patient presents from inpatient rehab after pulling out his PEG tube that was placed by GI 03/17. Patient was hospitalized for CVA of L MCA, received tpa on 03/14. Has residual dysphagia, expressive aphasia, and R sided weakness. He was discharged on 03/19 to inpatient rehab. In ED patient was found in floor, unwitnessed. CT brain done. ED Course: CT head negative - Allergies/Adverse Reactions Allergies Allergy/AdvReac Type Severity Reaction Status Date / Time No Known Allergies Allergy Unverified 03/14/18 19:34 - Home Medications Medication Instructions Recorded Confirmed Type Aspirin 325 mg PER TUBE DAILY #30 tab 03/19/18 03/21/18 Rx Atorvastatin Calcium [Lipitor] 10 mg PER TUBE HS #30 tab 03/19/18 03/21/18 Rx Carvedilol 12.5 mg PER TUBE BID #0 03/19/18 03/21/18 Rx - History PMHx: HTN, L MCA CVA 03/14/18 PSHx: PEG placed 03/17/18 FHx: noncontributory Social: Previously used smokeless tobacco. No alcohol or drug use. - Review of Systems ROS unobtainable: other (expressive aphasia) - Vital signs BP: 166/85 HR: 77 RR: 18 Tmax: 98.3 Pox: 96% on RA Wt: 73 kg - Physical Exam Constitutional: NAD, other (awake and alert) HEENT: normocephalic and atraumatic, PERRLA, MMM, oropharynx clear Heart: RRR, normal S1/S2 Lungs: CTAB, no rales/rhonchi, no wheezing Abdomen: soft, non-tender, bowel sounds present, other (small open incision where PEG was placed. umbilical hernia.) Musculoskeletal: normal structure, normal tone Neurological: other (R sided weakness of face and extremities. 4/5 muscle strength. left side intact) Skin: good turgor Heme/Lymphatic: no unusual bruising or bleeding FMR H&P: Results - Labs Result Diagrams: 03/21/18 20:50 03/21/18 20:50 Lab results: WBC 10.2 thou/uL (4.8-10.8) 03/21/18 20:50 Hgb 12.6 g/dL (14.0-18.0) L 03/21/18 20:50 Hct 40.8 % (42.0-52.0) L 03/21/18 20:50 MCV 92.3 fL (78.0-98.0) 03/21/18 20:50 Plt Count 382 thou/uL (130-400) 03/21/18 20:50 Neutrophils % 67.7 % (42.0-75.0) 03/21/18 20:50 Sodium 138 mmol/L (136-145) 03/21/18 20:50 Potassium 3.8 mmol/L (3.5-5.1) 03/21/18 20:50 Chloride 101 mmol/L (98-107) 03/21/18 20:50 Carbon Dioxide 29 mmol/L (23-31) 03/21/18 20:50 BUN 14 mg/dL (8.4-25.7) 03/21/18 20:50 Creatinine 0.70 mg/dL (0.6-1.3) 03/21/18 20:50 Glucose 91 mg/dL (83-110) 03/21/18 20:50 Calcium 9.5 mg/dL (7.8-10.44) 03/21/18 20:50 Total Bilirubin 1.0 mg/dL (0.2-1.2) 03/21/18 20:50 AST 28 U/L (5-34) 03/21/18 20:50 ALT 23 U/L (8-55) 03/21/18 20:50 Alkaline Phosphatase 47 U/L (40-150) 03/21/18 20:50 Serum Total Protein 7.3 g/dL (5.8-8.1) 03/21/18 20:50 Albumin 3.8 g/dL (3.4-4.8) 03/21/18 20:50 FMR H&P: A/P - Problem List (1) PEG (percutaneous endoscopic gastrostomy) adjustment/replacement/removal Current Visit: Yes Status: Acute Code(s): Z43.1 - ENCOUNTER FOR ATTENTION TO GASTROSTOMY (2) Aphasia Current Visit: Yes Status: Chronic Code(s): R47.01 - APHASIA (3) CVA (cerebral vascular accident) Current Visit: Yes Status: Chronic Code(s): I63.9 - CEREBRAL INFARCTION, UNSPECIFIED Comment: Status post tPA. Now past 24 hours. Start ASA. Will start statin if he can get to the poing of swallowing pills. (4) Dysphagia Current Visit: Yes Status: Chronic Code(s): R13.10 - DYSPHAGIA, UNSPECIFIED Comment: Still NPO. Failing swallowing evals. Talked with MACHINE SET UP TECHNICIAN. I don't think MBS is going to change the need for PEG. Discussed with patient and family. They are agreeable to the PEG. Discussed with Dr. Rizo. (5) Hypertension Current Visit: Yes Status: Chronic Code(s): I10 - ESSENTIAL (PRIMARY) HYPERTENSION Comment: Stable without meds. - Plan 73 yo M with hx CVA presents from rehab for PEG tube replacement PEG tube replacement - originally placed 03/17. Patient pulled it out today. Since tract did not have time to mature, unable to be replaced in ED. GI aware and plan for replacement tomorrow morning - zosyn started in ED (03/21) CVA of L MCA - on ASA and lipitor through PEG tube, held for now HTN - on carvedilol bid via PEG, held for now - prn hydralazine available Code: FULL Dispo: admit to medicine for PEG tube replacement tomorrow, anticipate discharge back to rehab after procedure FMR H&P: Upper Level - Pertinent history 73 yo CM with a recent PMH of left MCA CVA and PEG tube placement presenting from inpatient rehab after pulling out PEG tube. Pt hospitalized last week and found to have left MCA CVA and received tPA on 03/14. Pt found to have expressive aphasia and residual right sided weakness. Pt subsequently had PEG placed by GI on 03/17 and was eventually transferred for continued rehab. No family currently at bedside and pt unable to provide additional details. ERMD notes that pt was found on the floor of his ER room and subsequently had CT brain which was negative for acute process. - Pertinent findings Gen: well nourished in NAD CV: RRR Resp: CTAB Abd: BS+, soft, NTTP, PEG site covered c/d/i Neuro: aphasic, right extr 3/5 strength - Plan Date/Time: 03/21/182151 I, Prem Whaley MD PGY3, have evaluated this patient and agree with findings/ plan as outlined by chief internal auditor resident. Pertinent changes/additions are listed here. 1. PEG tube placement s/p left MCA CVA -ERMD consulted GI who recommended observation overnight and administration of IV abx. Pt to have PEG tube replaced tomorrow by GI due to tract not yet being mature. -Zosyn ordered, GI recommendations greatly appreciated. -PRN medications ordered for other medical conditions until pt able to tolerate PEG input. FULL code PPx: SCDs for VTE, no GI indicated disposition: Admit to medical observation for anticipated length of stay less than two midnights, pending clinical course. Attending Addendum - Attending Addendum Date/Time: 03/22/18 3800 I personally evaluated the patient and discussed the management with Dr. Wilson on 03/21/18 I agree with the History, Examination, Assessment and Plan documented above with any addition or exceptions noted below- 73 yo male patient presents from inpatient rehab after pulling out his PEG tube that was placed by GI 03/17. Patient was hospitalized for CVA of L MCA, received tpa on 03/14. Has residual dysphagia, expressive aphasia, and R sided weakness. He was discharged on 03/19 to inpatient rehab. In ED patient was found on floor with an unwitnessed fall. PMH/PSH/Meds/SH reviewed and agree with resident's documentation. Afebrile BP 163/79 P79 RR16 96% RA Exam repeated by me and agree with resident's findings. Labs: WBC=10.2, H/H= 12.6/40.8, esc=982, Na= 138, K=3.8, KV=145, CO2= 29, BUN/Cr=14/0.70, Gluc=91 CT brain- no change from prior CT. A/P: 1) Dysphagia secondary to recent L CVA with dislodgement of PEG tibe- Admit to medical. GI consulted and plans to replace PEG tube tomorrow. Continue zosyn as per GI recommendation. 2) L CVA with residual deficits- continue PT/OT/ST while here. Plan to transfer back to rehab.
[2018-03-21] MEDS ORDERED: hydrALAZINE 20 MG/ML VIAL SLOW IVP PRN (22:42)
[2018-03-21] MEDS ORDERED: Ondansetron PF 4 MG/2 ML Vial IVP PRN (22:42)
[2018-03-21] MEDS ORDERED: Acetaminophen 650 MG Suppository PR PRN (22:42)
[2018-03-21 23:29] VITALS: BMI 24.4
[2018-03-22] MEDS: Dextrose 5 % And 0.9 % NaCl 1,000 ML IV SCH ×2 (00:39→14:53)
[2018-03-22] MEDS ORDERED: Piperacillin/Tazobactam 3.375 GM in Sodium Chloride 0.9% 100 ML IVPB SCH (03:00)
[2018-03-22] MEDS: Piperacillin/Tazobactam 3.375 GM in Sodium Chloride 0.9% 100 ML IVPB SCH ×4 (03:24→20:04)
--- NOTE | 2018-03-22 06:37 | PDOC.FM ---
- Subjective Subjective: Mr. Morrow is resting comfortably in bed, no reports overnight. appears to not be in distress. He is aphasic. - Objective Vital Signs & Weight: Vital Signs (12 hours) Temp Pulse Resp BP Pulse Ox 03/22/18 04:00 98.1 F 78 18 149/76 H 96 03/22/18 00:00 98.2 F 81 16 148/70 H 97 03/21/18 23:43 96 03/21/18 22:42 97 03/21/18 22:10 98.3 F 79 18 166/85 H 96 Weight Weight 72.938 kg I&O: 03/20/18 03/21/18 03/22/18 06:59 06:59 06:59 Intake Total 100 Balance 100 Result Diagrams: 03/21/18 20:50 03/21/18 20:50 <Washington Umana - Last Filed: 03/22/18 08:22> - Objective Vital Signs & Weight: Vital Signs (12 hours) Temp Pulse Resp BP Pulse Ox 03/22/18 08:00 98.1 F 79 18 161/84 H 96 Weight Admit Weight 72.938 kg Weight 72.938 kg I&O: 03/21/18 03/22/18 03/23/18 06:59 06:59 06:59 Intake Total 100 Balance 100 Result Diagrams: 03/21/18 20:50 03/21/18 20:50 <Minerva Self - Last Filed: 03/22/18 18:48> Phys Exam - Physical Examination Constitutional: NAD HEENT: moist MMs Neck: no JVD Respiratory: no wheezing, no rales, no rhonchi Cardiovascular: RRR, no significant murmur Gastrointestinal: soft, no distention Musculoskeletal: no edema Psychiatric: normal affect Skin: no rash <Washington Umana - Last Filed: 03/22/18 08:22> Dx/Plan (1) PEG (percutaneous endoscopic gastrostomy) adjustment/replacement/removal Code(s): Z43.1 - ENCOUNTER FOR ATTENTION TO GASTROSTOMY Status: Acute (2) Aphasia Code(s): R47.01 - APHASIA Status: Chronic (3) CVA (cerebral vascular accident) Code(s): I63.9 - CEREBRAL INFARCTION, UNSPECIFIED Status: Chronic (4) Hypertension Code(s): I10 - ESSENTIAL (PRIMARY) HYPERTENSION Status: Chronic - Plan Plan: PEG tube replacement - originally placed 03/17. Patient pulled it out today. Since tract did not have time to mature, unable to be replaced in ED. GI aware and plan for replacement today - zosyn started in ED (03/21) CVA of L MCA - on ASA and lipitor through PEG tube, held for now HTN - on carvedilol bid via PEG, held for now - prn hydralazine available Code: FULL Dispo: PEG tube replacement today, anticipate discharge back to rehab after procedure <Washington Umana - Last Filed: 03/22/18 08:22> Attending Addendum - Attending Addendum Date/Time: 03/22/181846 I personally evaluated the patient and discussed the management with Dr. Umana. I agree with the History, Examination, Assessment and Plan documented above with any addition or exceptions noted below. Patient is resting comfortably. He will have peg tube replaced today and likely will be able to transfer back to inpt rehab. <Minerva Self - Last Filed: 03/22/18 18:48>
--- NOTE | 2018-03-22 07:30 | CON ---
DATE OF CONSULTATION: 03/22/2018 HISTORY OF PRESENT ILLNESS: The patient is a 73-year-old male who was recently admitted fo r cerebrovascular accident. He was seen by Dr. Rizo on 03/16/2018 and underwent an EGD and PEG on . A percutaneous endoscopic gastrostomy was placed without difficulty. The patient pulled t hat out yesterday. He adds nothing to history of present illness. PAST MEDICAL HISTORY: Includes hypertension and cerebrovascular accident. PAST SURGICAL HISTORY: Includes percutaneous endoscopic gastrostomy. MEDICATIONS: Include aspirin 325 mg 1 p.o. daily, Lipitor 10 mg p.o. at bedtime, Coreg 12.5 mg p.o. b.i.d. ALLERGIES: No known medical allergies. SOCIAL HISTORY: Does not smoke or drink. FAMILY HISTORY: Unobtainable. REVIEW OF SYSTEMS: Unobtainable. PHYSICAL EXAMINATION: GENERAL: Shows aphasic white male in no acute distress. VITAL SIGNS: Temperature 98.1, pulse is 78, respiratory rate 18, blood pressure 149/76. HEENT: Unremarkable. NECK: Supple. CHEST: Clear. CARDIOVASCULAR: Regular rate and rhythm. ABDOMEN: Soft, nontender, without organomegaly or masses. He has a PEG site in the left upper quadr ant that does not appear infected. He has a umbilical hernia. EXTREMITIES: Normal. NEUROLOGIC: Shows sequelae of his cerebrovascular accident. LABORATORY DATA: Shows a white blood cell count of 10.2, hemoglobin 12.6, hematocrit of 40.1. Chemi stry panel was essentially normal. ASSESSMENT: 1. Oropharyngeal dysphagia secondary to cerebrovascular accident. 2. PEG pulled out yesterday. 3. Hypertension. RECOMMENDATIONS: EGD and PEG placement today.
[2018-03-22] MEDS ORDERED: PROPOFOL 200 MG/20 ML VIAL ONE (16:04)
[2018-03-22] MEDS ORDERED: PHENYLEPHRINE-NS 100 MCG/ML 10 ML SYRINGE ONE (16:04)
[2018-03-22] MEDS ORDERED: Promethazine HCl 25 MG/ML VIAL IM PRN (18:34)
[2018-03-22] MEDS ORDERED: Ondansetron HCl/PF 4 MG/2 ML Vial IVP PRN (18:34)
[2018-03-22] MEDS ORDERED: Promethazine HCl 25 MG/ML VIAL SLOW IVP PRN (18:34)
--- NOTE | 2018-03-22 21:10 | RAD ---
AP VIEW ABDOMEN: 03/22/18 HISTORY: Recently pulled PEG tube. AP view abdomen demonstrates a round radiopaque density over the right lower and mid abdomen. Is this external to the patient? Correlate with clinical exam. Recently pulled PEG tube is not visible. Abdominal gas pattern is otherwise unremarkable. Degenerativ e changes seen of the L4-5 lumbar region. No dilated loops of small bowel seen. IMPRESSION: Radiopaque density over the right lower quadrant of the abdomen, unknown item. Correlate with clinica l exam. The rest of the abdominal radiograph is unremarkable. POS: MARTIN
--- NOTE | 2018-03-23 02:12 | OP ---
DATE OF PROCEDURE: 03/22/2018 PROCEDURE: Esophagogastroduodenoscopy (diagnostic). INDICATION FOR PROCEDURE: Oropharyngeal dysphagia, previous percutaneous gastrostomy tube removal. DESCRIPTION OF PROCEDURE: After the risks and benefits were explained to the patient's surrogate inc luding risks of bleeding, infection, perforation, reactions to anesthesia, aspiration and/or pain, in formed consent was obtained. The patient was then taken to the endoscopy suite where deep sedation w as administered via propofol and anesthesia support. The standard gastroscope was then introduced in to the mouth with intubation of the esophagus, stomach and the proximal small intestine with the find ings listed below. Upon completion of the initial examination, evaluation of the stomach was perform ed in preparation for the gastrostomy tube placement, 1:1 compression was achieved and the lack of transillumination was concerning for objects within the anterior abdominal wall and the stomach, thereby preventing adequate placement for percutaneous gastrostomy tube. Given the lack of these fin dings prior to gastrostomy tube placement, the procedure was aborted prematurely with all equipment r emoved and the patient was taken to PACU in satisfactory condition. There were no immediate perioper ative complications with the patient tolerated the procedure well. EGD FINDINGS: Esophagus: Normal appearing mucosa was seen in the proximal, mid and distal esophagus. There was no evidence of erosions, ulcerations, mass lesions or active/recent bleeding. Stomach: Poor insufflation of the stomach was seen during the course of this procedure despite the i nstillation of increasing amounts of air and pressure. Once adequate insufflation was achieved, visu alization of the gastric mucosa was then performed. Normal appearing mucosa was seen in the gastric cardia, fundus, body, greater curvature, antrum and incisura. However, there was a small ulceration seen in the distal gastric body along the greater curvature consistent with the prior PEG tube site. They did have a small amount of overlying clot. There were no other abnormalities noted nearby. Th ere was no evidence of erosions, mass lesions or active/recent bleeding. Upon initial evaluation, 1: 1 compression was performed that was fairly poor, but upon transillumination there was no light shini ng through the anterior abdominal wall lending itself toward either separation of the stomach from th e anterior abdominal wall or colon between the stomach and the anterior abdominal wall precluding jace cement of a percutaneous gastrostomy tube. Duodenum: Normal-appearing mucosa was seen in both the duodenal bulb and second portion of the duode num. There was no evidence of erosions, ulcerations, mass lesions or active/recent bleeding. IMPRESSION: 1. Normal upper endoscopy aside from a small ulceration with adherent clot in the gastric body consi stent with prior PEG tube site. 2. Inadequate 1:1 compression and transillumination making placement of a percutaneous gastrostomy t ube at this time prone to complication with premature of the procedure as a result. RECOMMENDATIONS: 1. We would continue the patient n.p.o., given significant oropharyngeal dysphagia secondary to rece nt cerebrovascular accident. 2. We will consult General Surgery for surgical gastrostomy tube placement. We will sign off at this time. Please call with any additional questions.
[2018-03-23] MEDS: Piperacillin/Tazobactam 3.375 GM in Sodium Chloride 0.9% 100 ML IVPB SCH ×3 (03:40→17:42)
--- NOTE | 2018-03-23 07:05 | PDOC.FM ---
- Subjective Subjective: Mr. Morrow is resting comfortably in bed, no reports overnight. He is aphasic. - Objective Vital Signs & Weight: Vital Signs (12 hours) Temp Pulse Resp BP Pulse Ox 03/22/18 21:00 98.6 F 78 18 159/81 H 96 Weight Admit Weight 72.938 kg Weight 72.938 kg I&O: 03/22/18 03/23/18 03/24/18 06:59 06:59 06:59 Intake Total 100 200 Balance 100 200 Result Diagrams: 03/21/18 20:50 03/21/18 20:50 <Washington Umana - Last Filed: 03/23/18 08:24> - Objective Vital Signs & Weight: Vital Signs (12 hours) Temp Pulse Resp BP Pulse Ox 03/23/18 07:44 98.2 F 79 18 96/51 L 97 Weight Admit Weight 72.938 kg Weight 72.938 kg I&O: 03/22/18 03/23/18 03/24/18 06:59 06:59 06:59 Intake Total 100 200 Balance 100 200 Result Diagrams: 03/21/18 20:50 03/21/18 20:50 <Minerva Self - Last Filed: 03/23/18 11:43> Phys Exam - Physical Examination Constitutional: NAD HEENT: moist MMs Neck: no JVD Gastrointestinal: no distention Musculoskeletal: no edema Psychiatric: normal affect Skin: no rash <Washington Umana - Last Filed: 03/23/18 08:24> Dx/Plan (1) PEG (percutaneous endoscopic gastrostomy) adjustment/replacement/removal Code(s): Z43.1 - ENCOUNTER FOR ATTENTION TO GASTROSTOMY Status: Acute (2) Aphasia Code(s): R47.01 - APHASIA Status: Chronic (3) CVA (cerebral vascular accident) Code(s): I63.9 - CEREBRAL INFARCTION, UNSPECIFIED Status: Chronic (4) Hypertension Code(s): I10 - ESSENTIAL (PRIMARY) HYPERTENSION Status: Chronic - Plan Plan: PEG tube replacement - originally placed 03/17. Patient pulled it out 03/21. Since tract did not have time to mature, unable to be replaced in ED. GI aware and plan for replacement today - GI unable to place, general surgery consulted for placement - zosyn started in ED (03/21) CVA of L MCA - on ASA and lipitor through PEG tube, held for now HTN - on carvedilol bid via PEG, held for now - prn hydralazine available Code: FULL Dispo: PEG tube replacement today, anticipate discharge back to rehab after procedure <Washington Umana - Last Filed: 03/23/18 08:24> Attending Addendum - Attending Addendum Date/Time: 03/23/18 1142 I personally evaluated the patient and discussed the management with Dr. Umana. I agree with the History, Examination, Assessment and Plan documented above with any addition or exceptions noted below. Peg tube unable to be placed yesterday. General surgery has been consulted. Will likely d/c after placement if cleared by surgery. <Minerva Self - Last Filed: 03/23/18 11:43>
--- NOTE | 2018-03-23 14:21 | CON ---
DATE OF CONSULTATION: 03/23/2018 HISTORY OF PRESENT ILLNESS: This is a 73-year-old male who sustained a stroke and is aphasic as well as has dysphagia and aspirates when he tries to take anything by mouth. He had a PEG tube placed , pulled that out. Attempts at replacement were unsuccessful by Dr. Ramesh yesterday. I have been consulted for a surgical assisted feeding tube. PAST MEDICAL HISTORY: Hypertension. Left MCA CVA. PAST SURGICAL HISTORY: PEG, 03/17/2018. FAMILY HISTORY: Noncontributory. SOCIAL HISTORY: No alcohol or other drugs. He is at rehab. REVIEW OF SYSTEMS: Otherwise, negative. PHYSICAL EXAMINATION: VITAL SIGNS: Blood pressure is 186/51, pulse 79. He is afebrile. CHEST: Clear. HEART: Regular rate and rhythm. ABDOMEN: Soft, nondistended, a little dressing at the old PEG tube site. ASSESSMENT: The patient pulled his PEG out, unable to be replaced endoscopically. Will need surgica l feeding tube. The issue is with his disposition. He will lose his rehabilitation bed if he does n ot return there today, whereas there is no OR availability for this procedure today. No OR availabil ity until late tomorrow. Okay with me for him to return then to have it done.
[2018-03-23 15:51] VITALS: BP 151/75; TEMP 97.9
--- NOTE | 2018-03-24 02:31 | DIS-2 ---
DATE OF ADMISSION: 03/21/2018 DATE OF DISCHARGE: 03/23/2018 RESIDENT: Washington Umana DO ADMITTING ATTENDING: Dr. Lily Alcantar. DISCHARGE ATTENDING: Dr. Minerva Self. CONSULTATIONS: 1. Dr. Santiago, gastroenterology. 2. Dr. Cabrera, general surgery. PROCEDURES: EGD for PEG tube placement aborted secondary to failure of transillumination through sto mach/abdominal wall surgery consulted to complete procedure. No time available in the operating room on 03/23/2018. PRIMARY DIAGNOSIS: PEG tube placement. SECONDARY DIAGNOSES: 1. Cerebrovascular accident of the left middle cerebral artery. 2. Hypertension. DISCHARGE MEDICATIONS: 1. Aspirin 325 per tube daily. 2. Lipitor 10 mg per tube at bedtime. 3. Carvedilol 12.5 mg per tube b.i.d. DISCONTINUED MEDICATIONS: None. HISTORY OF PRESENT ILLNESS AND HOSPITAL COURSE: Mr. Morrow is a 73-year-old male that presents from i npatient rehab after pulling out his PEG tube that was recently placed by GI. ER was unable to repla ce the PEG tube in the emergency department secondary to recent placement and nonepithelialization of the tract. GI was consulted from the emergency department to replace PEG tube the following day. G I unable to place PEG tube. Surgery consulted to replace PEG tube following day. No room and OR kehinde edule to replace PEG tube on 03/23/2018. Patient would lose spotted inpatient rehabilitation, if did not return today Surgery agreed to replace PEG tube in the operating room on an outpatient basis carine orrow. Throughout his stay, patient was at baseline in regard to his stroke. Labs were within feli l limits and at baseline. Patient was discharged back to inpatient rehab in stable condition. DISCHARGE INSTRUCTIONS: 1. Location: Inpatient rehabilitation. 2. Diet: N.p.o. 3. Activity: As tolerated, physical therapy. 4. Followup: Follow up with General Surgery tomorrow for PEG tube placement.
== END 2018-03-23 17:30 ==
LOC: ERS 19:29 → T4-B 20:39
PROVIDERS: ADMIT Family Medicine; ATTEND Family Medicine
PROC: 0DJ08ZZ Inspection of Upper Intestinal Tract, Via Natural or Artificial Opening Endoscopic (ICD-10-PCS; principal; 2018-03-22)
DX: K94.29 Other complications of gastrostomy (principal); I69.391 Dysphagia following cerebral infarction; R13.12 Dysphagia, oropharyngeal phase; K25.9 Gastric ulcer, unspecified as acute or chronic, without hemorrhage or perforation; I69.320 Aphasia following cerebral infarction; I69.351 Hemiplegia and hemiparesis following cerebral infarction affecting right dominant side; I10 Essential (primary) hypertension; Z87.891 Personal history of nicotine dependence; Z79.82 Long term (current) use of aspirin; Z79.899 Other long term (current) drug therapy
CPT/HCPCS: 43246; 70450; 74018; 80053; 85025; 96361; 96365; 96366; 96376 ×2; 99285; G0378 ×2; J2543; J2704; J7050

== ENCOUNTER 2018-03-24 11:53 | Day surgery (SDC) | payer MEDICARE ==
[2018-03-24] MEDS ORDERED: Dexamethasone 20 MG/5 ML VIAL ONE (14:34)
[2018-03-24] MEDS ORDERED: Lidocaine 1% PF 5 ML VIAL ONE (14:34)
[2018-03-24] MEDS ORDERED: PROPOFOL 200 MG/20 ML VIAL ONE (14:34)
[2018-03-24] MEDS ORDERED: Glycopyrrolate 0.2 MG/ML 5 ML SYRINGE ONE (14:34)
[2018-03-24] MEDS ORDERED: Ondansetron PF 4 MG/2 ML Vial ONE (14:34)
[2018-03-24] MEDS ORDERED: PHENYLEPHRINE-NS 100 MCG/ML 10 ML SYRINGE ONE (14:34)
[2018-03-24] MEDS ORDERED: CEFAZOLIN 2 GM/50 ML BAG ONE (15:50)
[2018-03-24] MEDS ORDERED: Bupivacaine/Epinephrine 0.25% 30 ML VIAL ONE (15:59)
[2018-03-24] MEDS ORDERED: Fentanyl 100 MCG/2 ML VIAL ONE (16:02)
[2018-03-24] MEDS ORDERED: Morphine 2 MG/ML SYRINGE ONE (18:35)
--- NOTE | 2018-03-24 21:35 | OP ---
DATE OF PROCEDURE: 03/24/2018 PREOPERATIVE DIAGNOSES: Protein calorie malnutrition, dysphagia secondary to cerebrovascular acciden t, recent pulled-out percutaneous endoscopic gastrostomy tube. POSTOPERATIVE DIAGNOSES: Protein calorie malnutrition, dysphagia secondary to cerebrovascular accide nt, recent pulled-out percutaneous endoscopic gastrostomy tube. PROCEDURE: Open gastrostomy tube 26 Malecot catheter. SURGEON: Rod Cabrera M.D. ANESTHESIA: General. ESTIMATED BLOOD LOSS: Minimal. COMPLICATIONS: None. SPECIMEN: None. FINDINGS: There is old hematoma and a moderate amount of inflammatory change on the greater curve of the stomach secondary to recent instrumentation, but no free perforation or purulence. TECHNIQUE: The patient was taken to the operating room and placed supine on the table. After genera l anesthetic was obtained, the abdomen was shaved, prepped, and draped in a sterile fashion. Midline incision was made from the xiphoid down. Cautery dissected down through the abdominal fascia into t he abdominal cavity. There was significant matted omentum up over the greater curve of the stomach. This was dissected off. There was no free hole or perforation in the stomach. There was no evidenc e of peritonitis or abscess; however, there was some old blood. This was irrigated out. Location al jan the greater curve was found and a pursestring of 2-0 silk was placed. Gastrotomy hole was made. The 26 Malecot was brought in through a separate stab incision and placed into the stomach. T he pursestring was tied down. A second pursestring was placed. The G-tube site was pulled up agains t the peritoneum and circumferential silk sutures were used to sew the serosa to the posterior perito neum. A 2-0 silk was used to sew the feeding tube itself to the skin of the anterior abdomen. All i nstrument counts, needle counts, lap counts were correct. Local anesthetic was applied. The fascia was closed using #1 PDS from the top and the bottom and tied in the middle. Subcutaneous tissues wer e irrigated and the skin was closed using 3-0 Vicryl, 4-0 Monocryl, and Dermabond. The patient was e n route to recovery in stable condition. All instrument counts, needle counts and lap counts were co rrect.
== END 2018-03-24 19:13 | disposition home or self-care (01) ==
LOC: SDC 11:53
PROVIDERS: ATTEND Surgery
PROC: 0DH60UZ Insertion of Feeding Device into Stomach, Open Approach (ICD-10-PCS; principal; 2018-03-24)
DX: K94.29 Other complications of gastrostomy (principal); I69.391 Dysphagia following cerebral infarction; R13.10 Dysphagia, unspecified; E46 Unspecified protein-calorie malnutrition; I69.320 Aphasia following cerebral infarction; I10 Essential (primary) hypertension; Z68.24 Body mass index [BMI] 24.0-24.9, adult; Z79.82 Long term (current) use of aspirin; Z79.899 Other long term (current) drug therapy
CPT/HCPCS: 96374; J1100; J2001; J2270; J2405; J2704; J3010

== ENCOUNTER 2019-10-13 07:20 | Outpatient (CLI) | payer MEDICARE, OTHER ==
[2019-10-13 16:21] LABS: #Basophils 0.1 thou/uL (0.0-0.2); #Eosinphils 0.6 thou/uL (0.0-0.7); #Lymphocytes 1.5 thou/uL (1.20-3.40); #Monocytes 0.6 thou/uL (0.11-0.59); %Eosinophils 6.8 % (0.0-10.0); %Lymphocytes 17.1 % (21.0-51.0); %Monocytes 6.7 % (0.0-10.0); %Neutrophils 68.5 % (42.0-75.0); Hemoglobin 12.5 g/dL (14.0-18.0); Mean Corpuscular HGB CONC 31.8 g/dL (32.0-36.0); Mean Corpuscular Hemoglobin 29.9 pg (27.0-31.0); Mean Corpuscular Volume 94.1 fL (78.0-98.0); Mean Platelet Volume 7.6 fL (7.4-10.4); Platelet Count 336 thou/uL (130-400); RBC Distribution Width 12.7 % (11.5-14.5); Red Blood Cell (RBC) Count 4.17 mill/uL (4.70-6.10); White Blood Cell (WBC) Count 8.8 thou/uL (4.8-10.8)
[2019-10-13 16:46] LABS: ALT (SGPT) 9 U/L (8-55); AST (SGOT) 14 U/L (5-34); Albumin 3.9 g/dL (3.4-4.8); Alkaline Phosphatase 183 U/L (40-110); Anion Gap 12 mmol/L (10-20); BUN (Urea Nitrogen) 12 mg/dL (8.4-25.7); Bilirubin, Total 0.3 mg/dL (0.2-1.2); Calc. Creatinine Clearance 0 mL/min (70-130); Calcium 8.8 mg/dL (7.8-10.44); Carbon Dioxide 27 mmol/L (23-31); Chloride 102 mmol/L (98-107); Estimated GFR-MDRD Greater than 90; Globulin 3.4 g/dL (2.4-3.5); Glucose 86 mg/dL (83-110); Potassium 3.8 mmol/L (3.5-5.1); Protein, Total 7.3 g/dL (5.8-8.1); Sodium 137 mmol/L (136-145)
[2019-10-14 16:50] LABS: SARS-CoV-2 MS2 Positive; SARS-CoV-2 N Gene Negative; SARS-CoV-2 S Gene Negative; SARS-CoV-2 orf1ab Negative
== END 2019-10-13 07:21 | disposition home or self-care (01) ==
LOC: LABBT 07:20
PROVIDERS: ATTEND Surgery
DX: Z01.818 Encounter for other preprocedural examination (principal); Z11.59 Encounter for screening for other viral diseases; K42.9 Umbilical hernia without obstruction or gangrene; K40.90 Unilateral inguinal hernia, without obstruction or gangrene, not specified as recurrent
CPT/HCPCS: 80053; 85025; 93005; U0003; 87635; 93010

== ENCOUNTER 2019-10-17 09:43 | Day surgery (SDC) | payer MEDICARE ==
[2019-10-13 15:08] VITALS: BMI 29.8
[~2019-10-17 09:43] MED LIST: Dexamethasone 20 MG/5 ML VIAL ONE; EPHEDRINE 25 MG/5 ML SYRINGE ONE; Ketorolac Tromethamine 30 MG/ML VIAL ONE; Lidocaine 1% PF 5 ML VIAL ONE; PROPOFOL 200 MG/20 ML VIAL ONE
[2019-10-17] MEDS ORDERED: Fentanyl 100 MCG/2 ML VIAL ONE (10:16)
[2019-10-17] MEDS ORDERED: Phenylephrine 10 MG/ML VIAL ONE (10:16)
--- NOTE | 2019-10-17 10:51 | HP ---
CHIEF COMPLAINT: Umbilical and right inguinal hernia. HISTORY OF PRESENT ILLNESS: The patient is a 74-year-old male with enlarging right inguinal hernia as well as an umbilical hernia. He underwent cardiac clearance and is here for repair. PAST MEDICAL HISTORY: Significant for hypertension. He has cardiac valvular abnormality treated by Dr. Campo in Cardiology. He has had a history of CVA in 2018. PAST SURGICAL HISTORY: Appendectomy, PEG tube removal, pneumothorax, TDAP. MEDICATIONS: 1. Aspirin. 2. Tums. 3. Sertraline. 4. Lipitor. 5. Keppra. FAMILY HISTORY: Both parents are . SOCIAL HISTORY: He is . Retired. He drinks alcohol daily. Nonsmoker. ALLERGIES: NO KNOWN DRUG ALLERGIES. PHYSICAL EXAMINATION: VITAL SIGNS: Height 67 inches, weight 160, and body mass index 25. GENERAL: Well-developed, well-nourished male, in no apparent distress. HEENT: Unremarkable. LUNGS: Clear. HEART: Regular rate and rhythm. ABDOMEN: He has a 6-cm umbilical hernia, very thin-walled, not tender, partially reduces. EXTREMITIES: Good pulses. No pedal edema. He has a large right scrotal inguinal hernia. ASSESSMENT: Right inguinal hernia and umbilical hernia. PLAN: Umbilical hernia repair with mesh, right inguinal hernia repair with mesh. CONSENT: I have discussed planned procedure as well as risk of bleeding, infection, injury to nerves, recurrences of the hernia. He understands and gives informed consent. Job ID: [id number]
[2019-10-17] MEDS ORDERED: Lidocaine 2% w/Epinephrine 1:200K 20 ML VIAL ONE (11:27)
[2019-10-17] MEDS ORDERED: Bupivacaine 0.25% HCL 30 ML VIAL ONE (11:27)
--- NOTE | 2019-10-18 08:29 | OP ---
DATE OF PROCEDURE: 10/17/2019 PREOPERATIVE DIAGNOSES: Large umbilical hernia and also right inguinal hernia. PROCEDURES PERFORMED: Umbilical hernia repair with mesh, right inguinal hernia repair with mesh. INDICATIONS: A 74-year-old male, who had a very large proboscis umbilical hernia that had become incarcerated at one point. He also had a painful right inguinal hernia. He had some heart issues and required cardiac clearance, which was obtained. FINDINGS: Very unusual-appearing proboscis umbilical hernia with quite a bit of extra skin. The actual defect was 2 cm. There was lot of omentum within the sac. It was an indirect right inguinal hernia. DESCRIPTION OF PROCEDURE: After informed consent was obtained, the patient was taken to the operating room and given general mask anesthesia, placed in the supine position. His abdomen and groin were prepped and draped in usual fashion. Local anesthesia was infiltrated subcutaneously and deep. An elliptical incision was performed to excise some of the excessive skin of the umbilicus. Then, the hernia sac was dissected out circumferentially down to the fascia, then it was excised. Its contents was omentum, which was reduced. Hemostasis was achieved with electrocautery. A 6.4-cm PROCEED mesh was hydrated, inserted intra-abdominally, pulled up and sutured to the abdominal wall with interrupted 0 Ethibond suture. Then, the skin was sutured down to the abdominal wall with interrupted 3-0 Vicryl to try and restore umbilical contour. The skin was finally closed with interrupted 4-0 Rapide and Steri-Strips applied. A transverse right inguinal incision was performed after local anesthesia infiltrated subcutaneously and deep. Subcu divided sharply. The fascia external oblique was incised in direction of its fibers through the external ring. Spermatic cord was isolated with a Marilla drain. He had a very large hernia sac, which extended down into the scrotum. The hernia sac was divided and the proximal end was closed with a pursestring of 0 silk. The hernia sac was reduced and reduction maintained utilizing a PHSE hernia system. The posterior layer was placed in the preperitoneal space, anterior was laid out, sutured to the pubic tubercle with a 2-0 Prolene suture, tucked under the external oblique fascia laterally. The notch was cut out for the spermatic cord. The cord placed anatomic. Hemostasis was assured. The external oblique fascia closed with a running 3-0 Vicryl. Marianna's closed with interrupted 3-0 Vicryl and the skin closed with a running subcuticular 4-0 Rapide. Steri-Strips applied. Sterile bandage applied. The patient tolerated the procedure well, transferred to Recovery in good condition. Sponge and needle count verified correct x2. Job ID: [id number]
== END 2019-10-17 16:00 | disposition home or self-care (01) ==
LOC: SDC 09:43
PROVIDERS: ATTEND Surgery
PROC: 0WUF0JZ Supplement Abdominal Wall with Synthetic Substitute, Open Approach (ICD-10-PCS; principal; 2019-10-17)
PROC: 0YU50JZ Supplement Right Inguinal Region with Synthetic Substitute, Open Approach (ICD-10-PCS; 2019-10-17)
DX: K40.90 Unilateral inguinal hernia, without obstruction or gangrene, not specified as recurrent (principal); K42.9 Umbilical hernia without obstruction or gangrene; I10 Essential (primary) hypertension; I69.351 Hemiplegia and hemiparesis following cerebral infarction affecting right dominant side; Z79.82 Long term (current) use of aspirin; Z79.899 Other long term (current) drug therapy
CPT/HCPCS: C1781; J0690; J1100; J1885; J2001; J2370; J2704; J3010; S0020

== ENCOUNTER 2019-10-28 16:48 | Emergency (ER) | payer MEDICARE ==
[~2019-10-28 16:48] MED LIST changes: -Dexamethasone 20 MG/5 ML VIAL ONE; -EPHEDRINE 25 MG/5 ML SYRINGE ONE; +Iopamidol-370 76% 500 ML 1 ML ONE; -Ketorolac Tromethamine 30 MG/ML VIAL ONE; -Lidocaine 1% PF 5 ML VIAL ONE; -PROPOFOL 200 MG/20 ML VIAL ONE
--- NOTE | 2019-10-28 17:09 | CT ---
CT BRAIN 10/28/19 PROVIDED CLINICAL HISTORY: Right sided weakness and gait changes. FINDINGS: Comparison 03/21/18. The ventricular system is normal in size and morphology. There is no evidence for intracranial hemorr lucila. Encephalomalacia related to remote infarctions demonstrated involving the left MCA distribution anteriorly as well as the left MCA, EXTENSION PROFESSOR watershed, similar to prior. The extracranial soft tissues a nd osseous structures demonstrate no acute findings. IMPRESSION: No evidence for intracranial hemorrhage or mass effect. Findings communicated to Dr. Holland via [employer] onnect, 4:57 p.m., 10/28/19. Code CR POS: ANTONIA
[2019-10-28 17:10] LABS: #Basophils 0.1 thou/uL (0.0-0.2); #Eosinphils 0.4 thou/uL (0.0-0.7); #Lymphocytes 1.4 thou/uL (1.20-3.40); #Monocytes 0.6 thou/uL (0.11-0.59); #Neutrophils 6.1 thou/uL (1.40-6.50); %Eosinophils 4.3 % (0.0-10.0); %Lymphocytes 16.1 % (21.0-51.0); %Monocytes 7.1 % (0.0-10.0); %Neutrophils 71.6 % (42.0-75.0); Mean Corpuscular HGB CONC 32.6 g/dL (32.0-36.0); Mean Corpuscular Hemoglobin 30.6 pg (27.0-31.0); Mean Corpuscular Volume 93.7 fL (78.0-98.0); Mean Platelet Volume 7.2 fL (7.4-10.4); Platelet Count 412 thou/uL (130-400); RBC Distribution Width 12.1 % (11.5-14.5); Red Blood Cell (RBC) Count 3.92 mill/uL (4.70-6.10); White Blood Cell (WBC) Count 8.4 thou/uL (4.8-10.8)
[2019-10-28 17:16] LABS: INR-International Normal Ratio 1.1; PTT 28.9 sec (22.9-36.1); Prothrombin Time 14.6 sec (12.0-14.7)
[2019-10-28 17:25] LABS: ALT (SGPT) Less than 7 U/L (8-55); AST (SGOT) 14 U/L (5-34); Albumin 3.7 g/dL (3.4-4.8); Alkaline Phosphatase 155 U/L (40-110); Anion Gap 13 mmol/L (10-20); BUN (Urea Nitrogen) 11 mg/dL (8.4-25.7); Bilirubin, Total 0.2 mg/dL (0.2-1.2); CK (CPK) 55 U/L (30-200); Calc. Creatinine Clearance 0 mL/min (70-130); Calcium 8.8 mg/dL (7.8-10.44); Carbon Dioxide 29 mmol/L (23-31); Chloride 101 mmol/L (98-107); Estimated GFR-MDRD Greater than 90; Globulin 3.2 g/dL (2.4-3.5); Glucose 100 mg/dL (83-110); Lipase 29 U/L (8-78); Potassium 3.7 mmol/L (3.5-5.1); Protein, Total 6.9 g/dL (5.8-8.1); Sodium 139 mmol/L (136-145)
--- NOTE | 2019-10-28 17:42 | RAD ---
SINGLE VIEW OF THE CHEST: 10/28/19 COMPARISON: None. HISTORY: Weakness and gait changes with altered mental status. FINDINGS: Single view of the chest shows a normal sized cardiomediastinal silhouette. There is subtle periphera l air space opacities in the lungs. No pleural effusion is seen. IMPRESSION: Subtle peripheral infiltrates bilaterally. POS: EAA
--- NOTE | 2019-10-28 17:54 | CT ---
CT ANGIOGRAM GREAT VESSELS OF NECK WITH IV CONTRAST AND 3D MIP RECONSTRUCTIONS: CT ANGIOGRAM BRAIN WITH IV CONTRAST AND 3D MIP RECONSTRUCTIONS: 10/28/19 PROVIDED CLINICAL HISTORY: Right sided weakness. FINDINGS: There is a normal three vessel configuration of the great vessels at the arch. There is conspicuous a therosclerotic vascular calcifications seen involving both proximal internal carotid arteries. There is no evidence for significant right internal carotid artery stenosis. There is luminal narrowing inv olving the left proximal internal carotid artery just distal to the bifurcation with minimal residual luminal diameter of about 1.6 mm. This compares to the normal luminal diameter of the more distal le ft ICA of about 5.5 mm. The great vessels of the neck demonstrate no additional significant extracran ial stenosis. There is focal atherosclerotic vascular calcification involving the proximal intracranial portion of the left vertebral artery, which is of diminutive caliber with respect to the right as the right is d ominant. This does not appear to result in significant stenosis. There is conspicuous atherosclerotic vascular calcification involving the cavernous portions of both internal carotid arteries. There is no evidence for focal vessel stenosis, branch occlusion or aneurysm involving the [place] of [place]. IMPRESSION: 1. Left proximal internal carotid artery stenosis as described above. 2. No evidence for high grade focal vessel stenosis, branch occlusion or aneurysm involving the [place] of [place]. POS: ANTONIA
[2019-10-28 18:24] LABS: Bilirubin Negative (Negative); Blood, Urine Negative (Negative); Clarity Clear (Clear); Glucose, Urine (Dipstick) Normal (Negative); Leukocyte Negative Leu/uL (Negative); Nitrite Negative (Negative); Protein, Urine (Dipstick) Negative (Neg-Trace); Urobilinogen Normal mg/dL (Less than 2)
== END 2019-10-28 18:58 | disposition home or self-care (01) ==
LOC: ERS 16:48
DX: R41.0 Disorientation, unspecified (principal); J18.9 Pneumonia, unspecified organism; Z86.73 Personal history of transient ischemic attack (TIA), and cerebral infarction without residual deficits; Z79.899 Other long term (current) drug therapy; Z79.82 Long term (current) use of aspirin
CPT/HCPCS: 36415; 36416; 70450; 70496; 70498; 71045; 80053; 80177; 80185; 81003; 82550; 83690; 83880; 84484; 85025; 85610; 85730; 93005; 96360; 96361; Q9967